=== PATIENT | female | born 1990 | race Caucasian/White ===

== ENCOUNTER → 2017-09-11 | Outpatient (CLI) | payer OTHER ==
--- NOTE | 2017-09-11 10:56 | Progress Note ---
Progress Note Date of Service Sep 11, 2017. Progress Note Pt here for HSG Pt identified and procedure performed with radiologist Pt tolerated procedure well dich home in stable condition Radiologist will dictate procedure
--- NOTE | 2017-09-11 11:06 | DIAGNOSTIC IMAGING REPORT ---
HYSTEROSALPINGOGRAM CLINICAL HISTORY: 26 years-old Female with INFERTILITY. Testing for infertility FLUOROSCOPY TIME: 0.5 minutes. 5 images. TECHNIQUE: Hysterosalpingogram performed in conjunction with Dr. Anderson of the [facility]. Radiology was present to provide fluoroscopy. FINDINGS: The endometrial canal appears normal in size and morphology. No endometrial contour abnormalities or filling defects. There is opacification of the fallopian tubes with bilateral spillage into the peritoneal cavity. IMPRESSION: 1. Normal morphologic appearance of the endometrial canal. 2. There is contrast spillage into the peritoneum bilaterally confirming bilateral fallopian tube patency. The above report was generated using voice recognition software. It may contain grammatical, syntax or spelling errors. Electronically signed by: Bill Moise M.D. 09/11/2017 11:04 AM Dictated Date/Time: 09/11/2017 11:03 AM
== END | disposition home or self-care (01) ==
LOC: C.RAD 10:17
PROVIDERS: ATTEND Obstetrics & Gynecology
DX: N97.9 Female infertility, unspecified (principal)